=== PATIENT | female | born 1980 | race Caucasian/White ===

== ENCOUNTER 2019-03-11 21:21 | Emergency (ER) | payer OTHER, BC ==
[~2019-03-11] VITALS: Ht 152.4 cm; Wt 65.8 kg
[2019-03-13 08:08] LABS: HEPATITIS B SURFACE AG Negative (Negative); HEPATITIS C AB <0.1 (0.0-0.9)
== END 2019-03-12 00:15 | disposition home or self-care (01) ==
LOC: ED 21:21
PROVIDERS: Physician Assistant
DX: S60.512A Abrasion of left hand, initial encounter (principal); M25.532 Pain in left wrist; Z23 Encounter for immunization; W23.0XXA Caught, crushed, jammed, or pinched between moving objects, initial encounter; Y93.89 Activity, other specified; Y92.89 Other specified places as the place of occurrence of the external cause; Y99.8 Other external cause status